=== PATIENT | female | born 1965 | race Caucasian/White ===

== ENCOUNTER 2020-12-18 23:41 | Emergency (ER) | payer OTHER ==
[2020-12-18 23:57] VITALS: BP 130/80; PULSE 99; TEMP 97.7; BMI 24.7
[2020-12-19 01:14] LABS: BASO % 0.6 % (0-2.0); EOS % 1.2 % (0-4.5); HEMATOCRIT 34.9 % (32.4-45.2); HEMOGLOBIN 12.2 GM/dL (10.7-15.3); LYMPH % 19.3 % (8-40); MCH 32.3 pg (25.7-33.7); MCHC 34.8 g/dl (32.0-36.0); MEAN CELL VOLUME 92.9 fl (80-96); MEAN PLT VOLUME 7.7 fl (7.5-11.1); MONO % 7.9 % (3.8-10.2); PLATELET COUNT 279 K/MM3 (134-434); RBC 3.76 M/mm3 (3.60-5.2); RDW 12.9 % (11.6-15.6)
[2020-12-19] MEDS ORDERED: ASPIRIN 81 MG CHEWABLE TABLETS PO ONE (01:24)
[2020-12-19] MEDS ORDERED: ASPIRIN 81 MG CHEWABLE TABLETS ONE (01:25)
[2020-12-19 01:47] LABS: CHLORIDE 99 mmol/L (98-107); SODIUM 133 mmol/L (136-145)
[2020-12-19 01:49] LABS: ANION GAP 9 MMOL/L (8-16); BLOOD UREA NITROGEN 7.8 mg/dL (7-18); CALCIUM 9.3 mg/dL (8.5-10.1); CO2 24 mmol/L (21-32); GLUCOSE,RANDOM 110 mg/dL (74-106)
[2020-12-19 01:50] LABS: ALBUMIN 4.1 g/dl (3.4-5.0)
[2020-12-19 01:52] LABS: SGPT/ALT 23 U/L (13-61)
[2020-12-19 01:53] LABS: CREATININE 0.6 mg/dL (0.55-1.3); SGOT/AST 26 U/L (15-37)
[2020-12-19 01:54] LABS: BILIRUBIN,TOTAL 0.6 mg/dL (0.2-1); TOT PROT 7.2 g/dl (6.4-8.2)
[2020-12-19 01:55] LABS: ALK PHOS 86 U/L (45-117)
[2020-12-19] MEDS ORDERED: ASPIRIN 81 MG CHEWABLE TABLETS PO SCH (10:00)
== END 2020-12-19 03:16 | disposition home or self-care (01) ==
LOC: JER 23:41
DX: J01.10 Acute frontal sinusitis, unspecified (principal); J34.2 Deviated nasal septum; K21.9 Gastro-esophageal reflux disease without esophagitis
CPT/HCPCS: 36415; 70450-TC; 71046-TC-FY; 80053; 82550; 84484; 85025; 93005; 93010; 99285-25; C9803; U0003; U0005

== ENCOUNTER 2021-01-02 18:31 | Emergency (ER) | payer OTHER ==
[2021-01-02 18:43] VITALS: BMI 24.5
[2021-01-02] MEDS ORDERED: LIDOCAINE 5% TOPICAL PATCH TP ONE (20:09)
[2021-01-02] MEDS ORDERED: ACETAMINOPHEN 500 MG TABLET (FP) PO ONE (20:09)
[2021-01-02] MEDS ORDERED: ACETAMINOPHEN 325 MG TABLET (FP) ONE (20:13)
[2021-01-02] MEDS ORDERED: LIDOCAINE 5% TOPICAL PATCH ONE (20:14)
[2021-01-02 20:32] LABS: BASO % 0.7 % (0-2.0); EOS % 1.3 % (0-4.5); HEMOGLOBIN 12.4 GM/dL (10.7-15.3); LYMPH % 29.9 % (8-40); MCH 32.7 pg (25.7-33.7); MCHC 34.6 g/dl (32.0-36.0); MEAN CELL VOLUME 94.5 fl (80-96); MEAN PLT VOLUME 7.5 fl (7.5-11.1); MONO % 7.1 % (3.8-10.2); PLATELET COUNT 294 K/MM3 (134-434); RDW 13.4 % (11.6-15.6); WHITE BLOOD COUNT 7.6 K/mm3 (4.0-10.0)
[2021-01-02 20:53] LABS: CHLORIDE 104 mmol/L (98-107); SODIUM 139 mmol/L (136-145)
[2021-01-02 20:56] LABS: ALBUMIN 4.4 g/dl (3.4-5.0); ANION GAP 7 MMOL/L (8-16); BLOOD UREA NITROGEN 9.8 mg/dL (7-18); CO2 29 mmol/L (21-32); GLUCOSE,RANDOM 100 mg/dL (74-106)
[2021-01-02 20:59] LABS: CREATININE 0.7 mg/dL (0.55-1.3); SGOT/AST 18 U/L (15-37); SGPT/ALT 19 U/L (13-61)
[2021-01-02 21:00] LABS: BILIRUBIN,TOTAL 0.6 mg/dL (0.2-1); TOT PROT 7.6 g/dl (6.4-8.2)
[2021-01-02 21:02] LABS: ALK PHOS 86 U/L (45-117)
[2021-01-02] MEDS ORDERED: METOCLOPRAMIDE HCL 10 MG TABLET (FP) PO ONE ×2 (21:56→21:59)
[2021-01-02] MEDS ORDERED: KETOROLAC TROMETHAMINE 15 MG/ML VIAL IM ONE (21:56)
[2021-01-02] MEDS ORDERED: CYCLOBENZAPRINE HCL 5 MG TABLET PO ONE (21:57)
[2021-01-02] MEDS ORDERED: CYCLOBENZAPRINE HCL 10 MG TABLET (FP) ONE (21:58)
[2021-01-02] MEDS ORDERED: KETOROLAC TROMETHAMINE 15 MG/ML VIAL ONE (21:59)
[2021-01-02] MEDS ORDERED: LIDOCAINE PATCH REMOVAL MC SCH (22:00)
[2021-01-02 22:45] VITALS: BP 117/82; PULSE 79; TEMP 100
== END 2021-01-02 22:46 | disposition home or self-care (01) ==
LOC: JER 18:31 → SUPCPDRO 18:31 → JER 22:46
PROC: 3E0233Z Introduction of Anti-inflammatory into Muscle, Percutaneous Approach (ICD-10-PCS; principal; 2021-01-02)
DX: M54.2 Cervicalgia (principal); R51.9 Headache, unspecified
CPT/HCPCS: 36415; 80053; 82550; 84484; 85025; 93005; 93010; 99284-25